=== PATIENT | male | born 1965 | race Caucasian/White ===

== ENCOUNTER 2016-06-02 06:30 | Day surgery (SDC) | payer OTHER ==
[~2016-06-02] VITALS: Ht 165.1 cm; Wt 65.3 kg
[2016-06-02 06:55] VITALS: Ht 165.1 cm; Wt 65.3 kg
[2016-06-02] MEDS ORDERED: IBUPROFEN (07:23)
[2016-06-02] MEDS ORDERED: [UNRECOGNIZED DRUG - REMARK] (07:23)
[2016-06-02] MEDS ORDERED: VICODIN (07:23)
[2016-06-02] MEDS ORDERED: RANITIDINE (07:23)
[2016-06-02 07:44] VITALS: BP 104/59; PULSE 72; RESP 17
[2016-06-02 07:57] VITALS: BP 104/59; PULSE 72; RESP 20
[2016-06-02] MEDS ORDERED: MIDAZOLAM 1 MG/ML 2 ML INJ ONE ×3 (09:06)
[2016-06-02] MEDS ORDERED: FENTAnyl 50 MCG/ML VIAL ONE (09:06)
[2016-06-02 09:17] VITALS: BP 98/62; PULSE 75
--- NOTE | 2016-06-03 03:24 | GILP ---
DATE OF PROCEDURE: 06/02/2016 NAME OF PROCEDURES: 1. Esophagogastroduodenoscopy and biopsy. 2. Colonoscopy. SURGEON: Rachelle Pagan MD PREOPERATIVE DIAGNOSES: 1. Abdominal pain. 2. Rectal bleeding. POSTOPERATIVE DIAGNOSES: 1. Superficial ulcers on the gastric antrum. 2. Gastritis with erosions. 3. Gastric mucosal biopsies were taken for Helicobacter pylori test. 4. Colonoscopy all the way to the cecum. 5. Internal hemorrhoids. 6. No colitis or neoplasm was identified. INDICATION FOR THE PROCEDURE: Mr. Marcin Bryant is a 50-year-old male patient who had upper abdomina l pain, not responding to therapy. The patient also had rectal bleeding. The patient was scheduled for endoscopy and colonoscopy for further evaluation. The procedures and possible complications were well explained to the patient. He understood and con sented to the procedure. DESCRIPTION OF PROCEDURE: Under the influence of fentanyl and Versed, the gastroscope was carefully introduced into the esophagus, and under direct vision, it was advanced to the stomach and through the pylorus into the duodenal bulb and descending duodenum. FINDINGS: ESOPHAGUS: The mucosa was normal. STOMACH: The patient had superficial ulcers on the gastric antrum. He also had gastritis with eros ions, and gastric mucosal biopsies were taken for H. pylori test. DUODENUM: Normal. The colonoscope was carefully introduced in the rectum, and under direct vision, it was advanced all the way to the cecum. FINDINGS: The patient had internal hemorrhoids. No colitis or neoplasm was identified. He tolerated the procedures very well, and there was no complication from the procedures. At the en d of the procedure, he was awake with stable vital signs, and he was discharged home to the care of his family. IMPRESSION: 1. Superficial ulcers on the gastric antrum. 2. Gastritis with erosions. 3. Gastric mucosal biopsies were taken for Helicobacter pylori test. 4. Colonoscopy all the way to the cecum. 5. Internal hemorrhoids. 6. No colon neoplasm or colitis was identified. PLAN: 1. Omeprazole 40 mg p.o. q. a.m. 2. Anusol-HC 2.5% cream at bedtime. 3. Await H. pylori test report. Dictated By: RACHELLE OLMSTEAD/TOREY Conf#: [id number] DID#: [id number]
--- NOTE | 2016-06-03 08:59 | CONS ---
DATE OF ADMISSION: 06/02/2016 DATE OF CONSULTATION: TYPE OF CONSULTATION: Preoperative gastroenterology. Dear Dr. Souza: I thank you very much for this kind referral. HISTORY OF PRESENT ILLNESS: Mr. Marcin Bryant is a 50-year-old male patient who has been referred to me for further evaluation of rectal bleeding. There is no past history of colon neoplasm. His kali etite has been good and he is not losing any weight. The patient also complains of upper abdominal pain. He gives history of peptic ulcer disease. He has been taking Zantac without complete relief of the symptoms. He has back pain and he is status post back surgery. He has been taking ibuprofen and Vicodin. There is no history of gallstones. He does not have any fever, chills, or jaundice. There is no history of liver disease. He is not a hypertensive or diabetic. He does not have any heart disease or lung problem. There is no history of kidney disease. He is taking antivirals for HIV. SOCIAL HISTORY: He is a nonsmoker. He does not abuse alcohol. FAMILY HISTORY: Particular for the history of colon cancer in his aunt. ALLERGIES: THERE IS NO HISTORY OF SIGNIFICANT DRUG ALLERGY. MEDICATIONS: 1. Ranitidine. 2. Ibuprofen. 3. Vicodin. 4. Antivirals for HIV. PHYSICAL EXAMINATION: VITAL SIGNS: He is 5 feet 3 inches tall, and he weighs 150 pounds. HEART: Examination of the heart reveals normal first and second heart sounds. LUNGS: Clear. ABDOMEN: Soft without any distention. Liver and spleen are not palpable. There are no masses. No rmal bowel sounds are heard. CENTRAL NERVOUS SYSTEM: Does not reveal any focal neurological deficit. IMPRESSION: 1. History of rectal bleeding. 2. Rectal examination deferred per the patient's request. It will be done at the time of colonosco py. 3. Upper abdominal pain, not responding to therapy with Zantac. 4. History of peptic ulcer disease. 5. The patient has been taking ibuprofen. 6. Status post back surgery. 7. The patient is on Vicodin. 8. Positive human immunodeficiency virus. The patient has been taking antivirals. 9. The patient's aunt had colon cancer. PLAN: Colonoscopy and upper endoscopy for further evaluation. The procedures and possible complications are well explained to the patient. He understands and con sents to the procedures. I thank you once again. With warmest personal regards, Dictated By: RACHELLE OLMSTEAD/TOREY Conf#: [id number] DID#: [id number] CC: RACHELLE JACOBO MD;*EndCC*
== END 2016-06-02 13:27 | disposition home or self-care (01) ==
LOC: GIL 06:30
PROVIDERS: ATTEND Internal Medicine Gastroenterology
DX: K29.60 Other gastritis without bleeding (principal); K25.9 Gastric ulcer, unspecified as acute or chronic, without hemorrhage or perforation; K64.8 Other hemorrhoids
CPT/HCPCS: 43239; 45378; 87081; J2250; J3010; Z7610